=== PATIENT | female | born 1990 | race Caucasian/White ===

== ENCOUNTER 2024-05-25 23:11 | Emergency (ER) | payer MEDICAID, SELFPAY ==
[2024-05-25 23:11] VITALS: BP 200/119; PULSE 91; RESP 16; TEMP 36.8; O2SAT 98; BMI 22.2
[2024-05-26] MEDS: Ondansetron ODT 4 MG Tablet PO (00:58)
[2024-05-26] MEDS: HYDROmorphone 1 MG/ML Syringe IM (00:59)
[2024-05-26 01:00] VITALS: BP 174/108; PULSE 61; RESP 18; O2SAT 98
--- NOTE | 2024-05-26 01:10 | RAD_ITS ---
EXAM: XR STERNUM, 2 OR MORE VIEWS CLINICAL INDICATION: pain TECHNIQUE: Lateral and oblique (3) views of the sternum. COMPARISON: No relevant prior studies available. FINDINGS: BONES/JOINTS: No acute sternal fracture. No sclerotic or destructive changes observed. SOFT TISSUES: No soft tissue swelling anterior to the sternum. OTHER: Visualized lungs are clear. RAD/Sternum min 2 Views IMPRESSION: Negative sternum. No sternal fracture is identified. Electronically Signed: Enzo Banegas MD at 2:35 EST ,
--- NOTE | 2024-05-26 02:26 | EX.ED.DYSGE1 ---
HPI History of Present Illness Chief Complaint: Abd Pain Informant: patient and spouse/S.O. Narrative Narrative: Patient is a 33-year-old female with past medical history of bipolar disorder as well as anxiety and depression. She states that roughly 1 to 2 hours ago she was wrestling with her kids. She states while doing this she got taken to the ground and as she fell backwards one of the children landed on her abdomen/sternum. She states after this she had severe pain that was worse with motion. She denies any history of bleeding disorder or blood thinner use. She denies striking her head or any loss of consciousness. She states however because of her severe pain she is concerned about internal injury and therefore comes in for evaluation [facility] Medical History (Updated 05/26/24 @ 04:[address] Jeremias Nugent DO) Bipolar 1 disorder Anxiety PTSD (post-traumatic stress disorder) Depression Home Medications ?Medication ?Instructions ?Recorded ?Last Taken ?Type oxycodone 5 mg tablet 5 mg PO Q6H PRN pain 3 days #12 05/26/24 Unknown Rx tabs Allergy/AdvReac Type Severity Reaction Status Date / Time onion Allergy Hives Verified 05/25/24 23:15 Social History Smoking Status: Current every day smoker tobacco type: cigarettes ROS ROS ED Constitutional Constitutional ED: Denies chills or fever(s) Eyes Eyes: Denies blurry vision or change in vision ENT ENT ED: Denies sore throat Cardiovascular Cardiovascular: Denies chest pain Respiratory/Chest Respiratory/Chest: Denies cough or dyspnea Gastrointestinal Gastrointestinal: Reports abdominal pain; Denies diarrhea, nausea or vomiting Genitourinary Genitourinary ED: Denies dysuria Musculoskeletal Musculoskeletal: Denies back pain or neck pain Integumentary Denies Abrasions Neurologic Neurologic: Denies headache(s) Hematologic/Lymphatic Hematologic/Lymphatic: Denies easy bleeding or easy bruising EXAM Physical Exam Const Vital Signs: 05/25/24 23:11 05/26/24 01:00 05/26/24 02:40 Temperature 98.2 F 97.7 F L Temperature Source Oral Pulse Rate 91 61 61 Respiratory Rate 16 18 18 Blood Pressure 200/119 H 174/108 H 166/105 H Blood Pressure Mean 146 130 125 Pulse Ox 98 98 99 Oxygen Delivery Method Room Air Room Air Positive well nourished and well developed General Appearance ED: well developed; Negative for pallor HEENT HEENT Narrative: Normocephalic atraumatic No signs of depressed or basilar skull fracture Eyes PERRL and EOMs intact bilaterally General Eye ED: Negative for scleral icterus Neck supple Neck Narrative: No bony deformity or step-off of the cervical spine no midline tenderness to palpation Patient is able to move her neck in all directions without pain Chest Wall Chest Narrative: No bony deformity or crepitance of the chest wall Patient does have reproducible pain over top of the lower third of the sternum No overlying abrasions or ecchymosis Resp normal respiratory effort and clear to auscultation bilaterally Cardio regular rate and regular rhythm GI non-distended and no masses GI Narrative: Abdomen is soft and nondistended with normal active bowel sounds. There is pain on palpation along the midepigastric and right sided abdomen without voluntary guarding or rigidity No abrasions or ecchymosis noted Auscultation: normoactive bowel sounds Palpation: soft Back/Spine Back/Spine Narrative: No bony deformity or step-off of the thoracic or lumbar spine no midline tenderness to palpation Extremity normal to inspection Neuro oriented x3, CN's II-XII intact bilaterally and no sensory deficits noted Sensorium / Orientation: alert Motor Exam: strength 5/5 throughout Psych mental status grossly normal Skin no rashes or lesions noted and no wounds General Skin Exam: Negative for jaundice or pallor MDM MDM MDM Narrative Medical decision making narrative: Patient presented to the ER hypertensive but otherwise with stable vitals. She states she only developed pain after a low mechanism of injury trauma to the chest/abdomen. With concern for sternal fracture versus sternal contusion I did elect to perform a sternal x-ray. She is not on a blood thinner the mechanism of injury is low she has no abdominal ecchymosis or distention so I have low concern for an intestinal hematoma or liver laceration and do not feel need for a CT scan. Sternal x-ray revealed no signs of fracture and this correlates with her physical exam. With improvement of pain the blood pressure reduced as well indicating the hypertension is secondary to the pain. As physical exam does not suggest internal trauma such as sternal fracture liver laceration or intestinal hematoma patient medium symptomatic medication and otherwise discharged home History & Record Review Discussion w/independent historian: Patient and Significant other Radiography Diagnostic Testing: Clinical Impression(s) from Imaging Studies Sternum X-Ray 05/26/24 01:10 IMPRESSION: Negative sternum. No sternal fracture is identified. Electronically Signed: Enzo Banegas MD at 2:35 EST , Sternal x-ray as interpreted by the emergency medicine physician reveals no acute fracture Discharge Plan Triage Chief Complaint: Abd Pain ED Provider: Jeremias Nugent Dx/Rx/DC Orders Clinical Impression: Contusion of sternum, Abdominal wall contusion, Bipolar disorder, Anxiety and depression, Hypertension Instructions: Abdominal Pain, ED Chest Wall Contusion Prescriptions: New oxycodone 5 mg tablet 5 mg PO Q6H PRN (Reason: pain) 3 Days Qty: 12 0RF Primary Care Provider: Care Physician,No Primary Referrals: Azar Bah MD [Med Staff - Active Staff] - Care Physician,No Primary [Primary Care Provider] - Print Language: Tajik Disposition Disposition: Home, Self Care Discharge Date/Time: 05/26/24 02:42
[2024-05-26] MEDS: oxyCODONE 5 MG Tablet 10 MG PO (02:39)
[2024-05-26 02:40] VITALS: BP 166/105; PULSE 61; RESP 18; TEMP 36.5; O2SAT 99
== END 2024-05-26 02:42 | disposition home or self-care (01) ==
PROVIDERS: Emergency Provider Emergency Medicine; Visit Provider Emergency Medicine
DX: S30.1XXA Contusion of abdominal wall, initial encounter (principal); F31.9 Bipolar disorder, unspecified; S20.214A Contusion of middle front wall of thorax, initial encounter; Y93.83 Activity, rough housing and horseplay; F41.9 Anxiety disorder, unspecified; I10 Essential (primary) hypertension; F17.210 Nicotine dependence, cigarettes, uncomplicated
CPT/HCPCS: 71120; 96372; 99282